=== PATIENT | male | born 1945 | race Hispanic/Latino ===

== ENCOUNTER → 2018-08-10 | Outpatient (CLI) | payer OTHER, MEDICARE ==
[~2018-08-10] VITALS: Ht 162.6 cm; Wt 87.1 kg
[~2018-08-10] MED LIST: REGADENOSON 0.4 MG/5 ML PF SYG IVP SCH
== END | disposition home or self-care (01) ==
LOC: SHCH 08:01
PROVIDERS: ATTEND Internal Medicine Cardiovascular Disease
DX: R07.9 Chest pain, unspecified (principal)
CPT/HCPCS: 78452; 93017; 96374; A9500 ×2; J2785

== ENCOUNTER → 2024-07-12 | Outpatient (CLI) | payer OTHER, MEDICAID ==
[2024-07-12] MEDS: REGADENOSON 0.4 MG/5 ML PF SYG IVP ONE (13:37)
--- NOTE | 2024-07-13 08:24 | HMCSR ---
APPROVED REPORT Height: 5 ft 4in Weight: 203 lbs TEST INDICATIONS CAD The imaging protocol used to acquire images was Rest Tc-99m/stress Tc-99m 1 day Consent: The procedure was explained and understood by the patient. Informerd consent was witnessed Robert Ramos RN First, low dose rest was performed then high dose stress. RESTING DATA: The resting ekg shows: Atrial Fibrillation, IncRBBB Rest SPECT myocardial perfusion imaging was performed in supine position 206 minutes following the in travenous injection of 11 mCi of Tc-99 Sestamibi. Time of rest injection: 08:55: Date: 07/12/2024 Time of rest imagin:21: Date: 07/12/2024 PHARMACOLOGIC STRESS: Pharmacologic stress test was performed by injecting regadenoson 0.4 mg IV push followed by the intra venous injection of 26.4 mCi of Tc-99 Sestamibi. Time of stress injection: 12:51: Date: 07/12/2024 Time of stress imagin:38: Date: 07/12/2024 Heart Rate at time of stress injection: 85 bpm. Gated Stress SPECT was performed 47 minutes after stress injection. The images were gated to evaluate regional wall motion and calculate left ventricular ejection fracti on. STRESS DETAILS Reason for Termination: Infusion complete Stress Symptoms: Chest Pressure Max HR Achieved: 85 bpm % of APMHR Achieved: 66 Max Blood Pressure: 142/99 mmHg Stress ECG: Atrial Fibrillation Conclusion No ischemia No infarct LV ejection fraction 71% Normal LV wall motion Normal LV size at rest and stress No increased lung uptake
== END | disposition home or self-care (01) ==
LOC: SHCH 08:24
PROVIDERS: ATTEND Internal Medicine Cardiovascular Disease
DX: I25.10 Atherosclerotic heart disease of native coronary artery without angina pectoris (principal); I48.91 Unspecified atrial fibrillation
CPT/HCPCS: 78452; 93017; J2785; A9500 ×2